=== PATIENT | male | born 1955 | race Caucasian/White ===

== ENCOUNTER 2018-01-02 17:33 | Emergency (ER) | payer BC ==
[2018-01-02] MEDS ORDERED: Tetan/Diph/Pertus SYR(Tdap)* 0.5 ML SYR(BOOSTRIX) use SYR IM ONE (18:17)
--- NOTE | 2018-01-02 18:29 | UC ---
Upper Extremity HPI - HPI Summary HPI Summary: 62 year old male presents with injury to right index and middle fingers. 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 There is involvement of the finger nail of the middle finger. Right hand dominant. Bleeding controlled with direct pressure. Tetanus status is unknown. Last intake was 2 slices of pizza at approximately 13:00. Denies significant medical or surgical history. - History of Current Complaint Chief Complaint: UCLaceration Stated Complaint: RIGHT MIDDLE AND INDEX FINGER LACERATIONS Time Seen by Provider: 01/02/18 17:49 Hx Obtained From: Patient Onset/Duration: Sudden Onset Severity Currently: Moderate Pain Intensity: 7 Character: Throbbing Alleviating Factor(s): Nothing Related History: Dominant Hand Right - Allergies/Home Medications Allergies/Adverse Reactions: Allergies Allergy/AdvReac Type Severity Reaction Status Date / Time No Known Allergies Allergy Verified 01/02/18 17:47 Home Medications: Home Medications NK [No Home Medications Reported] 01/02/18 [History Confirmed 01/02/18] PMH/Surg Hx/FS Hx/Imm Hx - Additional Past Medical History Additional PMH: noncontributory Previously Healthy: Yes - Surgical History Surgical History: None - Family History Known Family History: Positive: Other - noncontributory - Social History Occupation: Employed Full-time Lives: With Family Alcohol Use: Daily Substance Use Type: None Smoking Status (MU): Heavy Every Day Tobacco Smoker Type: Cigarettes Amount Used/How Often: 1 ppd - Immunization History Most Recent Tetanus Shot: "years ago" Review of Systems Constitutional: Negative Skin: Other - see HPI Respiratory: Negative Cardiovascular: Negative Neurovascular: Decreased Sensation - tip of right index finger Musculoskeletal: Other: - See HPI Is Patient Immunocompromised?: No All Other Systems Reviewed And Are Negative: Yes Physical Exam Triage Information Reviewed: Yes Appearance: Well-Appearing, No Pain Distress, Well-Nourished Vital Signs: Initial Vital Signs Temp 97.7 F 01/02/18 17:47 Pulse 71 01/02/18 17:47 Resp 98 01/02/18 17:47 BP 98/63 01/02/18 17:47 Pulse Ox 98 01/02/18 17:47 Vital Signs Reviewed: Yes Respiratory: Positive: Lungs clear, Normal breath sounds, No respiratory distress Cardiovascular: Positive: RRR, No Murmur, Pulses Normal, Delayed Capillary Refill - right index and middle fingers Musculoskeletal: Positive: Other: - Complete avulsion finger nail right middle finger with maceration of dorsal and tip of finger. Small laceration noted at base of finger nail right index finger. + swelling tips right index and middle fingers. Neurological: Positive: Alert Skin: Positive: Other - see above Diagnostics - Radiology No standard instances Xray Interpretation: Positive (See Comments) - Open comminuted fracture of distal phalanx right index and middle fingers. 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 Complete nail avulsion of left middle finger nail. Laceration to base of fingernail right index finger. X-ray shows comminuted fractures of the distal phalanx of right index and middle fingers. Spoke with Dr. Choi, orthopedic surgery, at [facility] who states hand surgery is not currently available and recommends transfer to [facility]. Patient was made NPO. Tetanus was updated. Given Ancef 2 Gm IVPB. Fingers were dressed with betadine dressings and hand placed in bulky gauze dressing. [facility] Transfer [place] was called and patient excepted to the ED at the [facility]. Patient vital signs were stable at time of transfer. Elects to go by private vehicle. - Differential Dx/Diagnosis Provider Diagnoses: Open comminuted fracture of distal phalanx right middle and index fingers - Physician Notification/Consults Discussed Patient Care With: Marcelo Choi - No hand surgery available at [facility]. Recommends transfer to [facility]. Agrees with plan to give Ancef 2 Gm IV. Requests betadine dressing to wounds. Time Discussed With Above Provider: 18:30 Instructed by Provider To: Transfer - [facility] was called. Spoke to Mirella Shepard RN who states patient will be excepted in the ED at the [facility]. Discharge - Sign-Out/Discharge Documenting (check all that apply): Patient Departure All imaging exams completed and their final reports reviewed: No - Discharge Plan Condition: Stable Disposition: HOME-RECOMMEND TO ED Patient Education Materials: Hand Fracture (ED) Referrals: Shabbir Gorman DO [Primary Care Provider] - Additional Instructions: You are to go directly to the Emergency Room at the [facility] for evaluation. It is extremely important that you do not delay going to this facility as doing so would increase the risk of an adverse outcome such as severe infection or loss of fingers. Do NOT eat or drink anything. Your tetanus was updated today. Be sure to notify your primary care provider so that they can update your records. - Billing Disposition and Condition Condition: STABLE Disposition: Home-Recommend to ED
[2018-01-02] MEDS ORDERED: ceFAZolin 500 MG VIAL(*) 500 MG VIAL IVPB ONE (18:37)
[2018-01-02] MEDS ORDERED: ceFAZolin 1 GM VIAL(*) ONE (18:45)
[2018-01-02] MEDS ORDERED: NS 0.9% 100 ML* 100 ML IV ONE (19:08)
[2018-01-02] MEDS ORDERED: HYDROcodone/ACETAMIN 5-325 MG* 1 TAB PO ONE (19:24)
[2018-01-02 19:42] VITALS: BP 120/68
--- NOTE | 2018-01-03 07:37 | RAD ---
INDICATION: Right hand trauma COMPARISON: None TECHNIQUE: AP, lateral, and oblique views were obtained. FINDINGS: There are open, comminuted fractures of the distal phalanges of the second and third digit with associated soft tissue injuries. The third digit fracture is most severely comminuted. No other fractures are evident. IMPRESSION: COMMINUTED DISTAL PHALANGEAL FRACTURES SECOND AND THIRD DIGITS.. R0
--- NOTE | 2018-01-03 08:36 | UC ---
- Progress Note Progress Note: xray report: comminuted fractures distal phalanx of second and third digits of right hand Course/Dx - Provider Notifications Time Discussed With Above Provider: 18:30 Instructed by Provider To: Transfer - [facility] was called. Spoke to Mirella Shepard RN who states patient will be excepted in the ED at the [facility]. Discharge - Sign-Out/Discharge Documenting (check all that apply): Post-Discharge Follow Up All imaging exams completed and their final reports reviewed: Yes - Discharge Plan Condition: Stable Disposition: HOME-RECOMMEND TO ED Patient Education Materials: Hand Fracture (ED) Referrals: Shabbir Gorman DO [Primary Care Provider] - Additional Instructions: You are to go directly to the Emergency Room at the [facility] for evaluation. It is extremely important that you do not delay going to this facility as doing so would increase the risk of an adverse outcome such as severe infection or loss of fingers. Do NOT eat or drink anything. Your tetanus was updated today. Be sure to notify your primary care provider so that they can update your records. - Billing Disposition and Condition Condition: STABLE Disposition: Home-Recommend to ED
== END 2018-01-02 20:08 | disposition home health service (06) ==
LOC: UCCORT 17:33
DX: S62.630B Displaced fracture of distal phalanx of right index finger, initial encounter for open fracture (principal); S62.632B Displaced fracture of distal phalanx of right middle finger, initial encounter for open fracture; W31.89XA Contact with other specified machinery, initial encounter; Y93.H2 Activity, gardening and landscaping; Y92.9 Unspecified place or not applicable; Z23 Encounter for immunization
CPT/HCPCS: 90471; 90715; 96365; 99203; G0463; J0690

== ENCOUNTER 2018-01-06 12:58 | Day surgery (SDC) | payer BC ==
[~2018-01-06 12:58] MED LIST: Buffered Lidocaine 0.9% SYRIN* 5 ML/SYR SYRINGE INTRADERM ONE; Dexamethasone IV* 4 MG/ML 1 ML (4 MG) IV SLOW PU ONE; Famotidine IV* 10 MG/ML 2 ML (20 mg) IV ONE; Levalbuterol 0.63MG/3ML NEB* UNIT OF USE INH ONE
[2018-01-06] MEDS ORDERED: ceFAZolin 2 GM PREMIX in ORs 2 GM/50 ML BAG IVPB ONE (13:13)
[2018-01-06] MEDS ORDERED: Levalbuterol 0.63MG/3ML NEB* UNIT OF USE INH ONE (13:13)
[2018-01-06] MEDS ORDERED: Dexamethasone IV* 4 MG/ML 1 ML (4 MG) ONE (13:14)
[2018-01-06] MEDS ORDERED: Famotidine IV* 10 MG/ML 2 ML (20 mg) ONE (13:14)
[2018-01-06] MEDS ORDERED: Ondansetron INJ* 2 MG/ML VIAL IV PRN (15:06)
[2018-01-06] MEDS ORDERED: DiMENhydriNATE IV* 50 MG/ML VIAL IV PUSH PRN (15:06)
[2018-01-06] MEDS ORDERED: fentaNYL* 50 MCG/ML 2 ML VIAL (100 MCG VIAL) IV PRN (15:06)
[2018-01-06] MEDS ORDERED: Naloxone* 0.4 MG/ML 1 ML VIAL IV PRN (15:06)
[2018-01-06] MEDS ORDERED: oxyCODONE/Acetamin 5/325 MG* TAB PO PRN (15:06)
[2018-01-06] MEDS ORDERED: fentaNYL* 50 MCG/ML 2 ML VIAL (100 MCG VIAL) ONE (15:13)
[2018-01-06] MEDS ORDERED: Midazolam* 1 MG/ML 5 ML VIAL (5 MG) ONE (15:13)
[2018-01-06] MEDS ORDERED: Propofol* 10 MG/ML 20 ML BTL IV PUSH ONE (15:14)
[2018-01-06] MEDS ORDERED: Ondansetron INJ* 2 MG/ML VIAL ONE (15:14)
[2018-01-06] MEDS ORDERED: Ketorolac INJ* 30 MG/ML 1 ML VIAL ONE (15:14)
[2018-01-06] MEDS ORDERED: ROPIVACAINE 5 MG/ML 30 ML BTL (0.5%) ONE (15:34)
[2018-01-06 17:27] VITALS: BP 119/70
--- NOTE | 2018-01-07 15:12 | RAD ---
CPT II Codes: G9500 INDICATION: Traumatic injury to the distal right index and middle phalanges TECHNIQUE: Intraoperative fluoroscopy was provided during percutaneous pinning. FINDINGS: 3 spot films depict comminuted fractures of the distal phalanges of the right index and middle fingers. A percutaneous pin is seen spanning the distal interphalangeal joint of one of the fingers in the lateral projection.. Fluoroscopy time: 42 seconds IMPRESSION: As above.
--- NOTE | 2018-01-20 17:13 | OP ---
OPERATIVE REPORT: DATE OF OPERATION: 01/06/18 DATE OF : 57 SURGEON: Marcelo Gupta MD ELECTRIC DRILL OPERATOR: TOÑITO Ireland ANESTHESIOLOGIST: Colt Anand MD ANESTHESIA: Local MAC. PRE-OP DIAGNOSES: 1. Right middle finger comminuted open distal phalanx fracture. 2. Right index finger distal phalanx fracture with nail bed injury. POST-OP DIAGNOSES: 1. Right middle finger comminuted open distal phalanx fracture. 2. Right index finger distal phalanx fracture with nail bed injury. OPERATIVE PROCEDURE: 1. Irrigation of right middle finger distal phalanx open fracture of skin, subcutaneous tissue, and bone. 2. Right middle finger distal phalanx open fracture, open reduction and percutaneous fixation. 3. Right index finger nail bed repair. 4. Repair of nail bed right middle finger. 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 I talked to him about potential for an amputation versus attempt to try to get the bone in better alignment. He understood and wished to proceed with surgery. ESTIMATED BLOOD LOSS: 2 mL. COMPLICATIONS: None. FINDINGS: See above and below. DESCRIPTION OF PROCEDURE: Flaquito was seen in the preoperative holding area. The correct side, site, and procedure were identified. We came back to the operating room. He got some anesthesia and I infiltrated the operative area with local anesthetic. We then prepped and draped the hand in the usual fashion and a time- out was performed. A Tourni-Cot was placed on the index finger and left on proximally. I then used a curved iris scissor to remove the nail plate and evacuated the subungual hematoma. The mini C-arm was used to confirm the alignment of the fracture. It was in acceptable alignment, so nothing further was needed to be done. I irrigated everything out and then repaired the nail bed with a few 6-0 chromic gut sutures. The nail plate was then cleaned with Betadine and then placed back in place and secured with a couple of 4-0 nylon sutures. I then placed the Tourni-Cot on the middle finger and went ahead and begun the debridement. The nail plate was already gone. The shredded nail bed was opened up and the fracture fragments were exposed. There were many mini fracture fragments. There was one larger fragment distally, proximally the joint surface was completely destroyed. I went ahead and irrigated everything out. Once I had completed the debridement and there was no foreign material remaining, I then went ahead and placed one 0.045 K-wire through the larger distal fragment. I got everything in correct alignment on the coronal and sagittal planes and then passed the wire across the DIP joint exiting out the middle phalanx ulnarly. Once I restored the length and alignment with the K- wire, I went ahead and used the 6-0 chromic gut to repair the nail bed. There was no nail fold to fold to splint open, so I went ahead and further augmented the closure by placing a couple of transverse 4-0 nylon sutures traversing the nail bed holding the paronychia in the appropriate position. Everything at this point was repaired to the extent possible. Therefore, we removed the Tourni-Cot. Both finger tips pinked up immediately. Fingertips were splinted and he was taken to the recovery room in stable condition. [id number]/[facility] #: [id number] MINAL
== END 2018-01-06 17:41 | disposition home or self-care (01) ==
LOC: OREAST 12:58
PROVIDERS: ATTEND Orthopaedic Surgery Hand Surgery
DX: S62.632B Displaced fracture of distal phalanx of right middle finger, initial encounter for open fracture (principal); S62.630B Displaced fracture of distal phalanx of right index finger, initial encounter for open fracture; Z72.0 Tobacco use; F41.9 Anxiety disorder, unspecified; W31.89XA Contact with other specified machinery, initial encounter; Y93.89 Activity, other specified; Y92.89 Other specified places as the place of occurrence of the external cause
CPT/HCPCS: 76000; C1776; J0690; J1100; J1885; J2250; J2405; J2704; J2795; J3010